=== PATIENT | female | born 2005 | race Caucasian/White ===

== ENCOUNTER 2024-02-16 18:09 | Emergency (ER) | payer MEDICAID, SELFPAY ==
[2024-02-16 18:12] VITALS: BP 108/57; PULSE 105; RESP 18; TEMP 36.8; O2SAT 96
[2024-02-16 18:32] VITALS: BP 108/57; PULSE 105; RESP 18; TEMP 36.8; O2SAT 96
--- NOTE | 2024-02-16 18:35 | W.ED.GENAD ---
Discharge Plan Disposition Patient Disposition: Home Condition: Stable Discharge Details Clinical Impression: Facial cellulitis Primary Care Provider: Mireya Elias ED Provider: Zack Graham Home Meds and New Rx's Prescriptions: New clindamycin HCl 300 mg capsule 300 mg PO TID 7 Days Qty: 21 0RF Discharge Instructions Instructions: Cellulitis (ED) Additional Instructions: Please take medications as prescribed. Please return to the emerged part for any worsening symptoms HPI General Date/Time Provider Initiated Documentation: 02/16/24 18:14. HPI Narrative: 18-year-old female history of polysubstance abuse, smokes crack and heroin, presents brought by family for evaluation of right facial swelling, swelling over the last day, superficial sores to face, denies trauma. Patient endorses smoking heroin approximately 2 hours ago. Related Data Home Medications Medication Instructions Recorded Confirmed clindamycin HCl 300 mg capsule 300 mg PO TID 7 days #21 caps 02/16/24 Previous Rx's Medication Instructions Recorded clindamycin HCl 300 mg capsule 300 mg PO TID 7 days #21 caps 02/16/24 Allergies Allergy/AdvReac Type Severity Reaction Status Date / Time No Known Allergies Allergy Unverified 02/16/24 18:47 General Stated Complaint: FacialProb GIAN: 3 Review of Systems Narrative: Review of Systems Constitutional: negative Eyes: negative ENT: negative Cardiovascular: negative Respiratory: negative Gastrointestinal: negative : negative Musculoskeletal: negative Skin: Facial sores, facial swelling Neurologic: negative Psych: negative Exam Narrative Exam Narrative: Physical Examination General: alert, awake, cooperative, resting comfortably, no acute distress HEENT: normocephalic, atraumatic; PERRL, EOM intact, conjunctiva normal; no nasal discharge; moist mucous membranes, oral and pharyngeal mucosa normal, tolerating secretions; soft submental and submandibular soft tissue, some fullness to right buccal soft tissue externally, no evidence of periapical abscess dental fracture or dental caries Neck: supple, trachea midline; full ROM Chest: normal to inspection Respiratory: normal respiratory effort, speaking in full sentences, clear to auscultation, no wheezing, rales or rhonchi Skin: Superficial ulcerations to skin of face consistent with skin picking Neuro: AAOx3, normal speech, moving all extremities Course Vital Signs Vital signs: Vital Signs Temperature 36.8 C 02/16/24 18:12 Pulse 105 H 02/16/24 18:12 Respiratory Rate 18 02/16/24 18:12 Blood Pressure 108/57 L 02/16/24 18:12 Pulse Oximetry 96 02/16/24 18:12 Temperature 36.8 C 02/16/24 18:12 Temperature Source Temporal Artery Scan 02/16/24 18:12 Pulse 105 H 02/16/24 18:12 Respiratory Rate 18 02/16/24 18:12 Blood Pressure 108/57 L 02/16/24 18:12 Blood Pressure Position Sitting 02/16/24 18:12 Pulse Oximetry 96 02/16/24 18:12 Oxygen Delivery Method Room Air 02/16/24 18:12 Oxygen Flow Rate 0 02/16/24 18:12 Medical Decision Making 18-year-old female history of polysubstance abuse, smokes crack cocaine, as well as heroin, presents with facial swelling to right side of face over the last day, afebrile nontoxic interactive alert tolerating secretions normal voice, normal oropharyngeal mucosa, midline uvula, no evidence of dental carry or abscess, soft submental and submandibular space, no crepitus to face, some fullness to soft tissue of buccal region externally, consider superficial facial cellulitis related to areas of skin picking as evident by multiple shallow ulcerations to skin of face. Low suspicion for deep space infection of head or neck such as Carl angina. Will provide clindamycin and acetaminophen. Home care instructions and strict return precautions given. Quality:[facility] Health Related Social Needs: No Data to Display PFSH All Active Problems (Updated 02/16/24 @ 19:04 by Zack Graham MD) Facial cellulitis (Acute) Social History Smoking/Tobacco Use Status: Current every day Tobacco Type: e-cigarettes Smoking risk assessment performed?: Yes Alcohol Intake: current Alcohol Intake frequency: 3 or more drinks per day Alcohol type: beer and hard liquor Drug use: Daily Substance use type: crack/cocaine and other Details: PT took fentanyl and gabapentin (that is not prescribed to patient) prior to arrival. Pt admits to smoking crack daily 02/16/24 Housing: apartment Do you feel safe at home: No (RN asked pt if she wanted assistance leaving her living situation;) Do you feel safe in your relationship?: Yes Additional Social history: RN asked pt if she wanted assistance leaving her current living situation; pt states no. Pt states she lives at a crack apartment which is why she does not feel safe. RN told pt that if she changes her mind that resources are available and the team is willing to help her find a new place to live that is safe. 02/16/24
[2024-02-16] MEDS: Clindamycin 150 MG CAP 450 MG PO (18:47)
[2024-02-16] MEDS: Acetaminophen 325 MG TAB 650 MG PO (18:47)
[2024-02-16 19:14] VITALS: BP 133/68; PULSE 80; RESP 14; O2SAT 99
--- NOTE | 2024-02-16 19:15 | NUR.NOTE ---
Referral to [facility]. I spoke with Yoko at [facility] and she will touch base with patient 02/17/24 in the morning.Nursing Note:
== END 2024-02-16 19:16 | disposition home or self-care (01) ==
PROVIDERS: Emergency Provider Emergency Medicine; PCP Physician Assistant
DX: L03.211 Cellulitis of face; F19.10 Other psychoactive substance abuse, uncomplicated
CPT/HCPCS: 99282; 99283

== ENCOUNTER 2024-07-03 15:13 | Emergency (ER) | payer MEDICAID, SELFPAY ==
[2024-07-03 15:15] VITALS: BP 107/67; PULSE 90; RESP 20; TEMP 36.5; O2SAT 96
--- NOTE | 2024-07-03 15:23 | ED.GENADUL_ITS ---
Discharge Plan Disposition Patient Disposition: Home Condition: Good Discharge Details Clinical Impression: Skin lesions, generalized, Bacterial folliculitis Primary Care Provider: Mireya Elias ED Provider: Eric Orozco Home Meds and New Rx's Prescriptions: New clindamycin HCl 150 mg capsule 450 mg PO Q6H 7 Days Qty: 84 0RF mupirocin 2 % ointment 1 applic topical TID Qty: 22 0RF Discharge Instructions Instructions: Bacterial folliculitis Additional Instructions: At this time you have multiple lesions that are small localized infections without evidence of internal systemic infection. This is likely MRSA related. As we discussed together there is also concern that it also may be a byproduct of illicit substances that have been consumed or taken. It is critical that you are consistent with the antibiotic and treatment regiment. Please take the clindamycin antibiotic as directed. You have been given a bottle for today, and the prescription has been sent to your pharmacy. Please also use the topical ointment on each of the lesions 3 times per day. You have been given a tube here as well as a prescription sent to your pharmacy. If you notice any worsening of your symptoms, or any new symptoms such as vomiting, diarrhea, fever, chills, shortness of breath, chest pain, numbness, weakness, or fainting , please return immediately to the emergency department for reevaluation. Please follow up with your primary care provider as soon as possible for reassessment and reevaluation. As always, it was a pleasure participating in your medical care today. Referrals: Mireya Elias MD [Primary Care Provider] - [facility] General Date/Time Provider Initiated Documentation: 07/03/24 15:14 . HPI Narrative: 18-year-old female with a past medical history of IV drug use, previous alcohol use, crack cocaine and fentanyl use, who usually receives care in [place], presents today for evaluation of skin lesions. Patient went to [place] just a few hours ago, she states that she was there for 4 hours. She had blood work drawn, which was benign aside for minimal elevation of her white count. She then left AMA, per the note it is not overly clear as to why she left. Patient then drove down to [facility] for evaluation. Patient states that she has lesions all over her body that she has had for some time. She states that she actively uses drugs. She denies any injection at this time, but does state that she has been scratching many of these lesions. She states that she is homeless, but she is here with her mother. She denies fever or chills. She states that she is going to [place] this week and wants treatment before she leaves. She has no other complaints. Related Data Home Medications ?Medication ?Instructions ?Recorded ?Confirmed clindamycin HCl 150 mg capsule 450 mg (3 x 150 mg) PO Q6H 7 days 07/03/24 #84 caps mupirocin 2 % topical ointment 1 applic topical TID #22 grams 07/03/24 Previous Rx's ?Medication ?Instructions ?Recorded clindamycin HCl 150 mg capsule 450 mg (3 x 150 mg) PO Q6H 7 days 07/03/24 #84 caps mupirocin 2 % topical ointment 1 applic topical TID #22 grams 07/03/24 Allergies Allergy/AdvReac Type Severity Reaction Status Date / Time latex Allergy Severe Anaphylaxis Verified 07/03/24 15:27 General Stated Complaint: RashLesion GIAN: 4 Review of Systems All systems reviewed & are unremarkable except as noted in HPI and below Exam Narrative Exam Narrative: 1.Const: Well-nourished, Well-developed, appearing stated age 2.Eyes: PERRL, no conjunctival injection, and symmetrical lids. 3.ENT: Atraumatic external nose and ears. Moist MM. Neck: Symmetric, trachea midline, No thyromegaly. 4.CVS: +S1/S2, No murmurs or gallops. Peripheral pulses 2+ and equal in all extremities. Brisk capillary refill in all extremities. 5.RESP: Unlabored respiratory effort. Clear to auscultation bilaterally. No wheezes rales or rhonchi 6.GI: Soft, Nontender/Nondistended, No hepatosplenomegaly. No guarding or rebound. 7.MSK: Normocephalic/Atraumatic, Extremities w/o deformity or ttp No cyanosis or clubbing, Normal movement of all extremities 8.Skin: Multiple small lesions over the arms, forehead, groin, and ankles. Most of them are scabbed over, some with mild serous discharge. Minimal surrounding erythema only about 4 mm out from it. No fluctuance to suggest abscess. 9.Neuro: signals collection technician II-XII grossly intact. Sensation grossly intact, no focal neurologic deficits. 10.Psych: (AAO) x3. Appropriate mood and affect Course Vital Signs Vital signs: Vital Signs Temperature 36.5 C 07/03/24 15:15 Pulse 90 07/03/24 15:15 Respiratory Rate 20 07/03/24 15:15 Blood Pressure 107/67 07/03/24 15:15 Pulse Oximetry 96 07/03/24 15:15 Temperature 36.5 C 07/03/24 15:15 Pulse 90 07/03/24 15:15 Respiratory Rate 20 07/03/24 15:15 Blood Pressure 107/67 07/03/24 15:15 Blood Pressure Position Sitting 07/03/24 15:15 Pulse Oximetry 96 07/03/24 15:15 Oxygen Delivery Method Room Air 07/03/24 15:15 Oxygen Flow Rate 0 07/03/24 15:15 Medical Decision Making 18-year-old female with a past medical history of IV drug use, previous alcohol use, crack cocaine and fentanyl use, who usually receives care in [place], presents today for evaluation of skin lesions. Patient went to [place] just a few hours ago, she states that she was there for 4 hours. She had blood work drawn, which was benign aside for minimal elevation of her white count. She then left [place], per the note it is not overly clear as to why she left. Patient then drove down to [facility] for evaluation. Patient states that she has lesions all over her body that she has had for some time. She states that she actively uses drugs. She denies any injection at this time, but does state that she has been scratching many of these lesions. She states that she is homeless, but she is here with her mother. She denies fever or chills. She states that she is going to [place] this week and wants treatment before she leaves. She has no other complaints. Physical exam demonstrates Multiple small lesions over the arms, forehead, groin, and ankles. Most of them are scabbed over, some with mild serous discharge. Minimal surrounding erythema only about 4 mm out from it. No fluctuance to suggest abscess. Symptoms appear consistent with mild folliculitis. They may have started from an insect bite, however at this point they certainly demonstrate evidence of mild superimposed bacterial infection. No fever or tachycardia's to suggest systemic sepsis. Patient does think that some of the drugs she takes may contain xylazine. Uncertain if any of her drugs contain crocodile. No other evidence of avascular necrosis anywhere. No current clinical evidence of staph scalded skin syndrome, erythema multiforme, erythema migrans, toxic epidermal necrolysis, Vega-Gio syndrome, Kawasaki-like rash, meningococcemia, pemphigus vulgaris, or necrotizing fasciitis. Symptoms appear consistent with mild folliculitis, likely made worse by hygiene and picking. No abscesses requiring incision and drainage at this time. Will prescribe clindamycin 450 mg 3 times daily for treatment as well as mupirocin ointment. Recommend avoidance of illicit substances. Patient was given resources for recovery as well prior to discharge. I have extensively reviewed the treatment plan and discharge instructions with the patient and their family. I have addressed all patient concerns at this time. The patient and family was made aware of what symptoms to monitor for that would warrant a return to the emergency department. Discussed the plan with the patient and family, they demonstrate verbal understanding and agreement with our assessment and plan at this time. The documentation in this chart was dictated using Real Time Translation dictation software. Please excuse any dictation errors. Quality:[facility] Health Related Social Needs: No Data to Display PFSH All Active Problems Bacterial folliculitis (Acute) Skin lesions, generalized (Acute) Social History Smoking/Tobacco Use Status: Current every day Tobacco Type: cigarettes Smoking risk assessment performed?: Yes Alcohol Intake: current Alcohol Intake frequency: 3 or more drinks per day Alcohol type: beer and hard liquor Drug use: Daily Substance use type: crack/cocaine, opiates and other Details: PT took fentanyl and gabapentin (that is not prescribed to patient) prior to arrival. Pt admits to smoking crack daily 02/16/24 Housing: apartment Do you feel safe at home: No (RN asked pt if she wanted assistance leaving her living situation;) Do you feel safe in your relationship?: Yes Additional Social history: RN asked pt if she wanted assistance leaving her current living situation; pt states no. Pt states she lives at a crack apartment which is why she does not feel safe. RN told pt that if she changes her mind that resources are available and the team is willing to help her find a new place to live that is safe. 02/16/24
[2024-07-03] MEDS: Clindamycin 150 MG CAP, 12 CAPS/BTL 450 MG PO (15:43)
[2024-07-03] MEDS: Mupirocin 2% Oint. 22 GM TUBE TP (15:44)
[2024-07-03 15:45] VITALS: RESP 18
--- OUTSIDE RECORDS SUMMARY | 2024-07-03 15:51 | XMS_ITS | Encounter Summary ---
[place] [address] Care Team Providers Care Budget Report Clerk Name Role Phone Rose Alexis APRN Primary Care Provider +1- [phone] Reason for Referral * Consultation (Routine) - Authorized Specialty Diagnoses / Procedures Referred By Jem hardin Referred To Contact Neurology Diagnoses Convulsions, unspecified convulsion type Rose Alexis APRN [address] [place] [address] [place] [address] [facility] [address] [place] [phone] Referral ID Status Reason Start Date Expiration Date Visits Requested Visits Authorized [id number] Authorized Consult, Test & Treat 06/16/2024 06/16/2025 1 1 Encounter Details Date Type Department Care Team (Latest Contact Info) Description 06/16/2024 Transcribe Orders eDH Incoming Referrals [phone] Rose Alexis APRN [address] [place] [phone] Convulsions, unspecified convulsion type Social History Tobacco Use Types Packs/Day Years Used Date Smoking Tobacco: Never Assessed Sex and Gender Information Value Date Recorded Sex Assigned at Not on file Gender Identity Not on file Sexual Orientation Not on file documented as of this encounter Plan of Treatment Scheduled Referrals Name Type Priority Associated Diagnoses Orde r Schedule Referral to Neurology Outpatient Referral Routine Convulsions, unspecified convulsion type Ordered: 06/16/2024 documented as of this encounter Visit Diagnoses Diagnosis Convulsions, unspecified convulsion type documented in this encounter Care Teams Budget Report Clerk Relationship Specialty Start Date End Date Rose Alexis APRN [address] [place] [address] [place] [address] PCP - General Family Medicine 09/20/22 documented as of this encounter
--- OUTSIDE RECORDS SUMMARY | 2024-07-03 15:51 | XMS_ITS | Encounter Summary ---
Author Organization [facility] [place] [address] Care Team Providers Care Sugar Laboratory Assistant Name Role Phone Rose Alexis APRN Primary Care Provider +1- [phone] Encounter Details Date Type Department Care Team (Late st Contact Info) Description 05/21/2024 Interpretation Only Radiology Library at [facility] [place] [address] Trav Gilmore MD [facility] [place] [address] Social History Tobacco Use Types Packs/Day Years Used Date Smoking Tobacco: Never Assessed Sex and Gender Information Value Date Recorded Sex Assigned at Not on file Gender Identity Not on file Sexual Orientation Not on file documented as of this encounter Plan of Treatment Not on file documented as of this encounter Procedures Procedure Name Priority Date/Time Associated Diagnosis Comments FILM LIBRARY STORAGE ONLY MR HEAD Routine 05/21/2024 1:50 PM EDT documented in this encounter Results * Film Library- Storage Only MR Head (05/21/2024 1:50 PM EDT) 05/28/2024 3:54 PM EDT Narrative RAD - 05/28/2024 3:54 PM EDT This exam is auto-finalizing. It's purpose is for storage only. Trav Gilmore MD IMG FILM LIBRARY ORD ERABLES [place] documented in this encounter Visit Diagnoses Not on filedocumented in this encounter Care Teams Sugar Laboratory Assistant Relationship Specialty Start Date End Date Rose Alexis APRN [address] [place] [place] [address] [place] [address] PCP - General Family Medicine 09/20/22 documented as of this encounter
--- OUTSIDE RECORDS SUMMARY | 2024-07-03 15:51 | XMS_ITS | Clinical Summary ---
Author Organization [facility] [place] [address] Care Team Providers Care Web Methods Developer Name Role Phone Rose Alexis APRN Primary Care Provider +1- [phone] Encounters Date Type Department Care Team Description 06/16/2024 Transcribe Orders eDH Incoming Referrals [phone] Rose Alexis APRN Convulsions, unspecified convulsion type 05/21/2024 1:50 PM EDT Ancillary Procedure Radiology Library at [place] [address] Trav Gilmore MD 05/21/2024 Interpretation Only Radiology Library [place] [place] [address] Trav Gilmore MD from Last 3 Months Social History Tobacco Use Types Packs/Day Years Used Date Smoking Tobacco: Never Assessed Sex and Gender Information Value Date Recorded Sex Assigned at Not on file Gender Identity Not on file Sexual Orientation Not on file Plan of Treatment Health Maintenance Due Date Last Done Comments Chlamydia Screening 12/13/2019 HPV vaccine (1 - 3-dose series) 12/13/2019 HIV screen 2022 Hepatitis C Screening 2022 Hepatitis B vaccine (0-59 yrs) (1) 12/13/2023 Tetanus/Diphtheria/Pertussis Vaccines (1 - Tdap) 12/13/2023 Covid-19 Vaccine (3 - 2022-24 season) 2024, 05/14/2021 Influenza (Flu) vaccine (1 o f 1 - Influenza standard series) 05/23/2024 Procedures Procedure Name Priority Date/Time Associated Diagnosis Comments FILM LIBRARY STORAGE ONLY MR HEAD Routine 05/21/2024 1:50 PM EDT from Last 3 Months Results * Film Library- Storage Only MR Head (05/21/2024 1:50 PM EDT) 05/28/2024 3:54 PM EDT Narrative [facility] - 05/28/2024 3:54 PM EDT This exam is auto-finalizing. It's purpose is for storage only. Trav Gilmore MD IMG FILM LIBRARY ORD ERABLES [place], [place] from Last 3 Months Care Teams Web Methods Developer Relationship Specialty Start Date End Date Rose Alexis APRN [address] [place] [address] [place] [address] PCP - General Family Medicine 09/20/22
--- OUTSIDE RECORDS SUMMARY | 2024-07-03 15:51 | XMS_ITS | Encounter Summary ---
[place] [address] Care Team Providers Care Yardage Control Operator Forming Name Role Phone Rose Alexis APRN Primary Care Provider +1- [phone] Reason for Referral * Consultation (Routine) - Closed Specialty Diagnoses / Procedures Referred By Jem hardin Referred To Contact Neurology Diagnoses Convulsions, unspecified convulsion type Mireya Elias PA [address] [place] [id number] [facility] [address] [place] [phone] Referral ID Status Reason Start Date Expiration Date V isits Requested Visits Authorized [id number] Closed Consult, Test & Treat 10/27/2023 10/26/2024 1 1 Encounter Details Date Type Department Care Team (Latest Contact Info) Description 10/27/2023 Transcribe Orders eD Incoming Referrals [phone] Mireya Elias PA [address] [place] [phone] Convulsions, unspecified convulsion type (Primary Dx) Social History Tobacco Use Types Packs/Day Years [...] Referral Routine Convulsions, unspecified convulsion type Ordered: 10/27/2023 documented as of this encounter Visit Diagnoses Diagnosis Convulsions, unspecified convulsion type- Primary documented in this encounter Care Teams Yardage Control Operator Forming Relationship Specialty Start Date End Date Rose Alexis APRN [address] [place] [address] [place] [address] PCP - General Family Medicine 09/20/22 documented as of this encounter
--- OUTSIDE RECORDS SUMMARY | 2024-07-03 15:51 | XMS_ITS | Encounter Summary ---
Author Organization [facility] [place] [address] Care Team Providers Care Manager French Name Role Phone Rose Alexis APRN Primary Care Provider +1- [phone] Encounter Details Date Type Department Care Team (Late st Contact Info) Description 05/21/2024 1:50 PM EDT Ancillary Procedure Radiology Library at [facility] [place] [address] Trav Gilmore MD [facility] [place] [address] Social History Tobacco Use Types Packs/Day Years [...] is for storage only. Trav Gilmore MD G FILM LIBRARY ORD ERABLES [facility] [place], [place] documented in this encounter Visit Diagnoses Not on filedocumented in this encounter Care Teams Manager French Relationship Specialty Start Date End Date Rose Alexis APRN [address] [place] [address] [place] [address] PCP - General Family Medicine 09/20/22 documented as of this encounter
--- OUTSIDE RECORDS SUMMARY | 2024-07-03 15:51 | XMS_ITS | Encounter Summary ---
Author Organization [facility] Address [facility] [place] [address] Care Team Providers Care Presser All Around Name Role Phone Rose Alexis APRN Primary Care Provider +1- [phone] Reason for Referral * Psychiatric (Routine) - Closed Specialty Diagnoses / Procedures Referred By Jem hardin Referred To Contact Psychiatry Diagnoses Alcohol abuse Rose Alexis APRN [address] [place] [address] Alon Jesus, PhD [facility] [place] [address] Referral ID Status Reason Start Date Expiration Date V isits Requested Visits Authorized [id number] Closed Consult, Test & Treat PCP Updated and/or Approved 09/20/2022 09/20/2023 6 6 Encounter Details Date Type Department Care Team ([facility] st Contact Info) Description 09/20/2022 Transcribe Orders eD Incoming Referrals [phone] Rose Alexis APRN [address] [place] [id number] Alcohol abuse Social History Tobacco Use Types Packs/Day Years Used Date Smoking Tobacco: Never Assessed Sex and Gender Information Value Date Recorded Sex Assigned at Not on file Gender Identity Not on file Sexual Orientation Not on file documented as of this encounter Plan of Treatment Scheduled Referrals Name Type Priority Associated Diagnoses Order Schedule Referral to Pediatric Psychology Outpatient Referral Routine Alcohol abuse Ordered: 09/20/2022 documented as of this encounter Visit Diagnoses Diagnosis Alcohol abuse Alcohol abuse, unspecified documented in this encounter Care Teams Presser All Around Relationship Specialty Start Date End Date Rose Alexis APRN [address] [place] [address] [place] [address] PCP - General Family Medicine 09/20/22 documented as of this encounter
== END 2024-07-03 15:47 | disposition home or self-care (01) ==
LOC: ER 15:50
PROVIDERS: Emergency Provider Student in an Organized Health Care Education/Training Program; PCP Physician Assistant
DX: L73.8 Other specified follicular disorders (principal); L98.8 Other specified disorders of the skin and subcutaneous tissue
CPT/HCPCS: 99283; 99284